=== PATIENT | male | born 1975 | race Caucasian/White ===

== ENCOUNTER 2019-10-20 13:46 | Emergency (ER) | payer OTHER, SELFPAY ==
--- NOTE | ~2019-10-20 | XR_ITS ---
EXAMINATION: XR hip RT min 2V EXAM DATE: 10/20/2019 14:32 INDICATION: Right hip pain since yesterday. Patient is a runner. TECHNIQUE: Right hip frontal, crosstable lateral and 'frog-leg' projections for interpretation. The re is no prior study for comparison. FINDINGS: Smooth right hip femoral head contour, no radiographic evidence of avascular necrosis. The re is mild right hip primary osteoarthritis. There are no acute fractures or dislocations identified. There is no subcutaneous gas. Several pelvic calcifications, phleboliths. There are no radiopaque foreign bodies. IMPRESSION: Mild right hip osteoarthritis. Reviewed, dictated and finalized at location A.
[2019-10-20 13:59] VITALS: BP 129/83; PULSE 62; RESP 16; TEMP 36.9; O2SAT 99
--- NOTE | 2019-10-20 14:03 | ED.BACK ---
HPI - Back Pain/Injury General Chief Complaint: Back Pain/Injury Stated Complaint: sharrp pain in back Time Seen by Provider: 10/20/19 14:00 Source: patient and RN notes reviewed History of Present Illness HPI Narrative: Patient is a 44-year-old male who presents the urgent care with complaints of right hip pain. Patient states that the pain started yesterday after walking home 2 miles due to left calf pain. Patient thinks that he may have compensated on the right hip and is now having severe pain . Patient states that he has been an avid runner off and on for many years and does wear supportive running shoe while running. However, yesterday he was having severe left calf pains and decided to walk approximately 2 miles back home. Patient has used heat and tramadol without much pain relief. Patient states that there is been only seconds of relief of the pain and he has been unable to get comfortable. Denies of any known trauma or fall. No other acute complaints. No acute distress noted. Patient read the plan of care. Related Data Home Medications Medication Instructions Recorded Confirmed cetirizine [Zyrtec] mg 10/20/19 omeprazole 10/20/19 tramadol mg 10/20/19 Allergies Allergy/AdvReac Type Severity Reaction Status Date / Time ketorolac Allergy Unknown Verified 05/07/15 12:19 Review of Systems Review of Systems: Narrative: CONSTITUTIONAL: Denies fever, chills, or sweats. EYES: Denies visual changes, redness, or discharge. ENT: Denies rhinorrhea, congestion, sore throat, or otalgia. CARDIOVASCULAR: Denies chest pain, palpitations, or edema. RESPIRATORY: Denies cough or dyspnea. GASTROINTESTINAL: Denies abdominal pain, nausea, vomiting, or diarrhea. GENITOURINARY: Denies dysuria or hematuria. SKIN: Denies rash or itching. MUSCULOSKELETAL: Reports of right hip pain NEUROLOGIC: Denies headache, numbness, or weakness. All other systems reviewed are negative, except as documented in HPI. PMFSH Comments At the time of my signature, I reviewed and agree with the nursing past medical, surgical, social, and family history. There is no relevant family history pertinent to the patient complaint. Exam Narrative: Exam Narrative: GENERAL: This is a well-nourished, well-developed patient, in no apparent distress. HEAD: normocephalic, atraumatic. EYES: PERRL. Sclera clear/white. Vision is grossly intact. EARS: External ears normal NOSE: External nose normal with no obvious nasal discharge, nares without redness, no rhinorrhea. THROAT: Mucous membranes moist NECK: Neck supple SKIN: warm, intact with no suspicious lesions or rash, good texture and turgor. NEURO: awake, alert, and oriented to person, place and time. There were no obvious focal neurologic abnormalities. EXTREMITIES: No pinpoint tenderness to anterior posterior right hip joint. Difficulty with range of motion due to severe pain. No obvious deformity or leg shortening. Positive strong right pedal pulse with capillary refill less than 2 seconds. BACK: Negative CVA tenderness bilateral, negative SLE bilateral Course Vital Signs Vital signs: Vital Signs Temperature 98.5 F 10/20/19 13:59 Pulse Rate 62 10/20/19 13:59 Respiratory Rate 16 10/20/19 13:59 Blood Pressure 129/83 10/20/19 13:59 Pulse Oximetry 99 10/20/19 13:59 Temperature 98.5 F 10/20/19 13:59 Pulse Rate 62 10/20/19 13:59 Respiratory Rate 16 10/20/19 13:59 Blood Pressure 129/83 10/20/19 13:59 Pulse Oximetry 99 10/20/19 13:59 Reviewed MDM - Back Pain/Injury MDM Narrative Medical decision making narrative: Reviewed x-ray results with the patient. He is aware the x-ray was negative for any fracture deformity of the right hip. However, there is mild osteoarthritis which is likely the culprit for the pain in conjunction with muscular pain. Advised the patient to complete the steroid regimen for inflammation, as prescribed. Make sure to eat and drink with the medicatio
== END 2019-10-20 14:59 | disposition home or self-care (01) ==
PROVIDERS: Emergency Provider Nurse Practitioner Family
DX: M16.11 Unilateral primary osteoarthritis, right hip (principal); K21.9 Gastro-esophageal reflux disease without esophagitis
CPT/HCPCS: 73502; 99213; G0463

== ENCOUNTER → 2021-01-25 18:27 | Outpatient (CLI) | payer OTHER, SELFPAY ==
--- NOTE | ~2021-01-25 | XR_ITS ---
XR shoulder RT min 2V DATE: 01/25/2021 19:06 INDICATION: Right shoulder pain TECHNIQUE: 4 views COMPARISON: None FINDINGS: No fracture or dislocation, periosteal reaction or bone destruction or abnormal soft tissue calcification IMPRESSION: Negative Reviewed, dictated and finalized at location A. IMPRESSION: Negative
== END ==
DX: M25.511 Pain in right shoulder (principal)
CPT/HCPCS: 73030